=== PATIENT | male | born 1995 | race Caucasian/White ===

== ENCOUNTER 2017-10-31 17:24 | Emergency (ER) | payer OTHER ==
[~2017-10-31] VITALS: Ht 167.6 cm; Wt 59.5 kg
[~2017-10-31 17:24] MED LIST: LORTA5 PO; NAPR550 PO
[2017-10-31 17:31] VITALS: BP 131/88; PULSE 61; RESP 16; TEMP 98.2; O2SAT 99
[2017-10-31] MEDS ORDERED: TETANUS/DIPHTHERIA TOXOID ADULT 0.5 ML VIAL IM ONE (17:45)
[2017-10-31] MEDS ORDERED: PROPARACAINE HCL 0.5% OPHT SOLN 15 ML BTL EACH EYE ONE (17:45)
--- NOTE | 2017-10-31 17:45 | PD ---
HPI Chief Complaint: Eye Problems/Injury Time Seen by Provider: 17:34 Travel History International Travel<30 days: No Contact w/Intl Traveler<30days: No Traveled to known affect area: No History of Present Illness HPI 22-year-old male presents to the emergency room for evaluation of foreign body sensation to the right eye this started after he got metal in it about 7 hours ago. 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 He is unsure if it was concrete or metal. States he took an industrial strength magnet and put up to his eye and saw a small piece of metal fly out of his eye. States he noticed a small amount of blood as well. He has had foreign body sensation and tearing since then. Denies eye pain, changes in visual acuity, photophobia, or drainage. He does not wear contacts. Unknown last tetanus. [facility] Past Medical History ADD: Yes Asthma: Yes (DAD STATES "HAS ALWAYS HAD PROBLEMS WITH HIS LUNGS") Autoimmune Disease: No Cancer: No Diabetes: No Gastrointestinal Disorders: No Genitourinary: No Headaches: Yes Hepatitis: No Hiatal Hernia: No Psychiatric: No Respiratory: Yes (HOSPITALIZED FOR PNEUMONIA 2005 ASTHMA) Immunizations Current: Yes Thyroid Disease: No Past Surgical History Surgical History: No Previous Surgery Other Surgery: No Social History Alcohol Use: No Tobacco Use: No Substance Use: No Allergies-Medications (Allergen,Severity, Reaction): Coded Allergies: No Known Allergies (Verified Adverse Reaction, Unknown, 10/31/17) Reported Meds & Prescriptions Reported Meds & Active Scripts Active Erythromycin Opth Oint 5 Mg/Gm Oint 1 Applic RIGHT EYE QID Review of Systems Except as stated in HPI: all other systems reviewed are Neg Physical Exam Narrative GENERAL: Well-nourished, well-developed male in no acute distress. Afebrile. Ambulatory. SKIN: Focused skin assessment warm/dry. HEAD: Normocephalic. EYES: PERRL, EOMI without pain. Mild right-sided injection. No discharge. No scleral icterus. Fluorescein staining reveals a 1 mm black foreign body at the 5 o'clock position of the cornea. There is also a smaller corneal abrasion at the 3 o'clock position. Negative Mariaa sign. No corneal ulceration. Visual acuity is 20/20 bilaterally. Eyelid eversion reveals no foreign body. NECK: Supple, trachea midline. No JVD or lymphadenopathy. CARDIOVASCULAR: Regular rate and rhythm without murmurs, gallops, or rubs. RESPIRATORY: Breath sounds equal bilaterally. No accessory muscle use. PSYCHIATRIC: No delusional thought processes. No hallucinations. Data Data Last Documented VS Vital Signs Date Time Temp Pulse Resp B/P (MAP) Pulse Ox O2 Delivery O2 Flow Rate FiO2 10/31/17 17:31 98.2 61 16 131/88 (102) 99 Orders Orders Proparacaine 0.5% Opth Soln (Alcaine 0.5 (10/31/17 17:45) Tetanus/Diphtheria Tox Adult (Tetanus/Di (10/31/17 17:45) Eye Irrigation (10/31/17 17:53) Ed Discharge Order (10/31/17 18:16) [facility] Medical Decision Making Medical Screen Exam Complete: Yes Emergency Medical Condition: Yes Medical Record Reviewed: Yes Differential Diagnosis Corneal ulceration, abrasion, foreign body, conjunctivitis Narrative Course 22-year-old male presents to the emergency room for evaluation of foreign body sensation to the right eye after getting construction material in it earlier today. Patient denies any changes in visual acuity, eye pain, or photophobia. Physical exam reveals EOMI without pain. Mild injection of the right eye. Fluorescein staining reveals a 1 mm black foreign body at the 5 o'clock position of the cornea. There is also a smaller corneal abrasion at the 3 o' clock position. Negative Mariaa sign. No corneal ulceration. Visual acuity is 20/20 bilaterally. Eyelid eversion reveals no foreign body. Patient's eye was numbed with proparacaine and then flushed with 250 mL's of normal saline using a Norberto lens. He reports significant improvement in symptoms afterward. The foreign body was removed with a Q-tip. Patient discharged with erythromycin eye ointment told to follow-up with air and water tester or return for worsening symptoms. He understands and agrees to plan. Diagnosis Primary Impression: Foreign body of right eye Qualified Codes: T15.91XA - Foreign body on external eye, part unspecified, right eye, initial encounter Referrals: Primary Care Physician Additional Instructions: Rest and drink plenty of fluids. Apply ointment 4 times daily for 5 days. Follow-up with air and water tester. Return to the emergency room for worsening symptoms. Scripts Erythromycin Opth Oint (Erythromycin Opth Oint) 5 Mg/Gm Oint 1 APPLIC RIGHT EYE QID for Infection, #1 TUBE 0 Refills Prov: Ranulfo Dial MD 10/31/17 Disposition: 01 DISCHARGE HOME Condition: Stable Martha Izaguirre Oct 31, 2017 17:45
[2017-10-31] MEDS ORDERED: ERYTOIN10 RIGHT EYE (18:17)
== END 2017-10-31 18:24 | disposition home or self-care (01) ==
LOC: PHEFT 17:24
DX: T15.91XA Foreign body on external eye, part unspecified, right eye, initial encounter (principal); J45.909 Unspecified asthma, uncomplicated; Z23 Encounter for immunization
CPT/HCPCS: 65220; 90471; 90714